=== PATIENT | male | born 1945 | race Caucasian/White ===

== ENCOUNTER → 2017-05-09 | Emergency (ER) | payer OTHER ==
[~2017-05-09] VITALS: Ht 188 cm; Wt 85.3 kg
== END | disposition home or self-care (01) ==
LOC: ER 11:04
DX: K29.60 Other gastritis without bleeding (principal)

== ENCOUNTER 2018-01-19 15:39 | Emergency (ER) | payer OTHER ==
[~2018-01-19] VITALS: Ht 188 cm; Wt 80.3 kg
== END 2018-01-19 19:04 | disposition home or self-care (01) ==
LOC: ER 15:39
DX: S62.613A Displaced fracture of proximal phalanx of left middle finger, initial encounter for closed fracture (principal); W22.8XXA Striking against or struck by other objects, initial encounter; Y93.89 Activity, other specified; Y92.018 Other place in single-family (private) house as the place of occurrence of the external cause; Y99.8 Other external cause status